=== PATIENT | male | born 1950 ===

== ENCOUNTER 2016-10-29 06:56 | Day surgery (SDC) | payer MEDICARE ==
[2016-10-27 09:09] VITALS: BMI 26.9
[2016-10-29] MEDS ORDERED: Propofol 10 mg/ml Inj (20 ML) ONE (08:09)
[2016-10-29 08:45] VITALS: PULSE 57; TEMP 98
[2016-10-29] MEDS ORDERED: Sodium Chloride 0.9% 1,000 ML IV SCH (08:45)
[2016-10-29 08:56] VITALS: BP 156/77; RESP 18; O2SAT 99
== END 2016-10-29 09:56 | disposition home or self-care (01) ==
LOC: ENDO 06:56
PROVIDERS: ATTEND Internal Medicine Gastroenterology
DX: Z12.11 Encounter for screening for malignant neoplasm of colon (principal); D12.2 Benign neoplasm of ascending colon; K64.1 Second degree hemorrhoids; I10 Essential (primary) hypertension; E11.9 Type 2 diabetes mellitus without complications; Z79.84 Long term (current) use of oral hypoglycemic drugs
CPT/HCPCS: 45385; 82948; 88305; J2704; J7040 ×2